=== PATIENT | female | born 1975 | race Caucasian/White ===

== ENCOUNTER 2018-02-07 06:26 | Emergency (ER) | payer OTHER ==
[~2018-02-07] VITALS: Ht 175.3 cm; Wt 63.5 kg
[~2018-02-07 06:26] MED LIST: VICODIN 5-5001 EACH PO
[2018-02-07] MEDS ORDERED: FLAGYL500 MG PO (07:52)
[2018-02-07 08:04] LABS: URINE BILIRUBIN NEGATIVE (Negative); URINE BLOOD TRACE (Negative); URINE CLARITY CLEAR; URINE COLOR YELLOW; URINE GLUCOSE-RANDOM NEGATIVE (Negative); URINE KETONES NEGATIVE (Negative); URINE LEUKOCYTES-REFLEX NEGATIVE (Negative); URINE NITRITE-REFLEX NEGATIVE (Negative); URINE PROTEIN NEGATIVE (Negative); URINE SPECIFIC GRAVITY >= 1.030 (1.005-1.030); URINE UROBILINOGEN 0.2 E.U./dl (0.2-1.0)
[2018-02-07 08:16] VITALS: BP 98/53
== END 2018-02-07 08:16 | disposition home or self-care (01) ==
LOC: M.ERS 06:26
PROVIDERS: Emergency Medicine
DX: Z11.3 Encounter for screening for infections with a predominantly sexual mode of transmission (principal); N76.0 Acute vaginitis; B96.89 Other specified bacterial agents as the cause of diseases classified elsewhere; F17.210 Nicotine dependence, cigarettes, uncomplicated

== ENCOUNTER 2018-09-05 13:41 | Emergency (ER) | payer OTHER ==
[~2018-09-05] VITALS: Ht 175.3 cm; Wt 63.5 kg
[~2018-09-05 13:41] MED LIST changes: +FLAGYL500 MG PO
[2018-09-05] MEDS ORDERED: NOHOMEMEDICATIONS (13:57)
[2018-09-05 14:12] LABS: URINE BILIRUBIN NEGATIVE (Negative); URINE BLOOD 3+ (Negative); URINE COLOR YELLOW; URINE GLUCOSE-RANDOM NEGATIVE (Negative); URINE KETONES NEGATIVE (Negative); URINE LEUKOCYTES TRACE (Negative); URINE NITRITE POSITIVE (Negative); URINE PROTEIN TRACE (Negative); URINE SPECIFIC GRAVITY 1.025 (1.005-1.030); URINE UROBILINOGEN 0.2 E.U./dl (0.2-1.0)
[2018-09-05 14:13] LABS: URINE CLARITY HAZY
[2018-09-05 14:14] LABS: SQUAMOUS >10 Many /LPF (0-3)
[2018-09-05 14:15] LABS: BACTERIA >30 Many /HPF (None Seen); CASTS None Seen /LPF (None Seen); CRYSTALS None Seen /LPF (None Seen); URINE RBC >20 Many /HPF (0-2); URINE WBC 0-5 Rare /HPF (0-5)
[2018-09-05] MEDS ORDERED: CIPRO500 MG PO (14:21)
[2018-09-05] MEDS ORDERED: FLAGYL500 MG PO (14:33)
[2018-09-05 14:38] VITALS: BP 130/84
== END 2018-09-05 14:38 | disposition home or self-care (01) ==
LOC: M.ERS 13:41
PROVIDERS: Nurse Practitioner Family
DX: Z11.3 Encounter for screening for infections with a predominantly sexual mode of transmission (principal); N76.0 Acute vaginitis; B96.89 Other specified bacterial agents as the cause of diseases classified elsewhere; N39.0 Urinary tract infection, site not specified; F17.210 Nicotine dependence, cigarettes, uncomplicated

== ENCOUNTER 2018-11-16 20:44 | Emergency (ER) | payer OTHER ==
[~2018-11-16] VITALS: Ht 175.3 cm; Wt 59.9 kg
[~2018-11-16 20:44] MED LIST changes: +CIPRO500 MG PO; +NOHOMEMEDICATIONS
[2018-11-16 21:42] LABS: URINE BILIRUBIN NEGATIVE (Negative); URINE BLOOD NEGATIVE (Negative); URINE CLARITY CLEAR; URINE COLOR YELLOW; URINE GLUCOSE-RANDOM NEGATIVE (Negative); URINE KETONES NEGATIVE (Negative); URINE LEUKOCYTES-REFLEX NEGATIVE (Negative); URINE NITRITE-REFLEX POSITIVE (Negative); URINE PROTEIN NEGATIVE (Negative); URINE SPECIFIC GRAVITY >= 1.030 (1.005-1.030); URINE UROBILINOGEN 0.2 E.U./dl (0.2-1.0)
[2018-11-16] MEDS ORDERED: BACTRIM DS TAB1 EACH PO (21:45)
[2018-11-16 22:00] LABS: BACTERIA-REFLEX >30 Many /HPF (None Seen); MUCUS 4-6 Moderate strn/LPF (None Seen)
[2018-11-16 22:01] LABS: SQUAMOUS >10 Many /LPF (0-3); URINE WBC-REFLEX 0-5 Rare /HPF (0-5)
[2018-11-16 22:02] LABS: CASTS None Seen /LPF (None Seen); CRYSTALS None Seen /LPF (None Seen); URINE RBC None Seen /HPF (0-2)
[2018-11-16 22:13] VITALS: BP 127/80
== END 2018-11-16 22:15 | disposition home or self-care (01) ==
LOC: M.ERS 20:44
PROVIDERS: Physician Assistant
DX: N39.0 Urinary tract infection, site not specified (principal)

== ENCOUNTER 2018-12-21 21:12 | Emergency (ER) | payer OTHER ==
[~2018-12-21] VITALS: Ht 175.3 cm; Wt 59.0 kg
[~2018-12-21 21:12] MED LIST changes: +BACTRIM DS TAB1 EACH PO
[2018-12-21 21:35] LABS: URINE BILIRUBIN NEGATIVE (Negative); URINE BLOOD NEGATIVE (Negative); URINE CLARITY CLEAR; URINE COLOR YELLOW; URINE GLUCOSE-RANDOM NEGATIVE (Negative); URINE KETONES NEGATIVE (Negative); URINE LEUKOCYTES-REFLEX NEGATIVE (Negative); URINE NITRITE-REFLEX NEGATIVE (Negative); URINE PROTEIN TRACE (Negative); URINE SPECIFIC GRAVITY >= 1.030 (1.005-1.030); URINE UROBILINOGEN 0.2 E.U./dl (0.2-1.0)
[2018-12-21] MEDS ORDERED: DOXYCYCLINE MO100 M1 PO (21:57)
[2018-12-21] MEDS ORDERED: FLAGYL500 M1 PO (22:03)
[2018-12-21 22:29] VITALS: BP 126/79
== END 2018-12-21 22:30 | disposition home or self-care (01) ==
LOC: M.ERS 21:12
PROVIDERS: Nurse Practitioner Family
DX: Z20.2 Contact with and (suspected) exposure to infections with a predominantly sexual mode of transmission (principal); N76.0 Acute vaginitis; F17.210 Nicotine dependence, cigarettes, uncomplicated

== ENCOUNTER 2018-12-23 21:54 | Emergency (ER) | payer OTHER ==
[~2018-12-23] VITALS: Ht 175.3 cm; Wt 61.2 kg
[~2018-12-23 21:54] MED LIST changes: +DOXYCYCLINE MO100 M1 PO; +FLAGYL500 M1 PO
[2018-12-23] MEDS ORDERED: FLAGYL500 M1 PO (22:20)
[2018-12-23 22:31] VITALS: BP 113/73
== END 2018-12-23 22:32 | disposition home or self-care (01) ==
LOC: M.ERS 21:54
DX: Z20.2 Contact with and (suspected) exposure to infections with a predominantly sexual mode of transmission (principal); Z76.0 Encounter for issue of repeat prescription; F17.210 Nicotine dependence, cigarettes, uncomplicated

== ENCOUNTER 2019-04-27 03:37 | Emergency (ER) | payer OTHER ==
[~2019-04-27] VITALS: Ht 175.3 cm; Wt 63.5 kg
[2019-04-27] MEDS ORDERED: FLAGYL500 M1 PO (04:16)
[2019-04-27 04:30] LABS: URINE BILIRUBIN 1+ (Negative); URINE BLOOD NEGATIVE (Negative); URINE CLARITY CLEAR; URINE COLOR DARK YELLOW; URINE GLUCOSE-RANDOM NEGATIVE (Negative); URINE KETONES TRACE (Negative); URINE LEUKOCYTES-REFLEX NEGATIVE (Negative); URINE NITRITE-REFLEX POSITIVE (Negative); URINE PROTEIN 1+ (Negative); URINE SPECIFIC GRAVITY >= 1.030 (1.005-1.030); URINE UROBILINOGEN 0.2 E.U./dl (0.2-1.0)
[2019-04-27 04:33] LABS: ICTOTEST (BILI CONFIRMATORY) Negative (Negative)
[2019-04-27 04:58] LABS: BACTERIA-REFLEX >30 Many /HPF (None Seen); CASTS None Seen /LPF (None Seen); CRYSTALS None Seen /LPF (None Seen); MUCUS 4-6 Moderate strn/LPF (None Seen); SQUAMOUS 0-3 Few /LPF (0-3); TRANSITIONAL EPITHEL CELL 0-3 Few /LPF (None Seen); URINE RBC 3-10 Few /HPF (0-2); URINE WBC-REFLEX 6-15 Few /HPF (0-5)
[2019-04-27 05:07] VITALS: BP 106/58
== END 2019-04-27 05:08 | disposition home or self-care (01) ==
LOC: M.ERS 03:37
PROVIDERS: Personal Emergency Response Attendant
DX: N76.0 Acute vaginitis (principal); B96.89 Other specified bacterial agents as the cause of diseases classified elsewhere; F17.210 Nicotine dependence, cigarettes, uncomplicated

== ENCOUNTER 2020-02-08 11:10 | Emergency (ER) | payer OTHER ==
[~2020-02-08] VITALS: Ht 175.3 cm; Wt 61.2 kg
[2020-02-08 12:00] VITALS: BP 106/57
== END 2020-02-08 12:01 | disposition home or self-care (01) ==
LOC: M.ERS 11:10
DX: Z20.2 Contact with and (suspected) exposure to infections with a predominantly sexual mode of transmission (principal); R21 Rash and other nonspecific skin eruption; F17.210 Nicotine dependence, cigarettes, uncomplicated

== ENCOUNTER 2020-10-23 02:59 | Emergency (ER) | payer OTHER ==
[~2020-10-23] VITALS: Ht 175.3 cm; Wt 61.2 kg
[2020-10-23 03:32] LABS: URINE BILIRUBIN NEGATIVE (Negative); URINE BLOOD NEGATIVE (Negative); URINE CLARITY CLEAR; URINE COLOR YELLOW; URINE GLUCOSE-RANDOM NEGATIVE (Negative); URINE KETONES TRACE (Negative); URINE LEUKOCYTES-REFLEX NEGATIVE (Negative); URINE PROTEIN NEGATIVE (Negative); URINE SPECIFIC GRAVITY >= 1.030 (1.005-1.030); URINE UROBILINOGEN 0.2 E.U./dl (0.2-1.0)
[2020-10-23 03:45] LABS: URINE NITRITE-REFLEX POSITIVE (Negative)
[2020-10-23 04:03] LABS: CASTS None Seen /LPF (None Seen); MUCUS 4-6 Moderate strn/LPF (None Seen); SQUAMOUS >10 Many /LPF (0-3)
[2020-10-23 04:04] LABS: BACTERIA-REFLEX >30 Many /HPF (None Seen); CRYSTALS None Seen /LPF (None Seen); URINE RBC None Seen /HPF (0-2)
[2020-10-23] MEDS ORDERED: FLAGYL500 M1 PO (04:22)
[2020-10-23] MEDS ORDERED: BACTRIM DS TAB1 EACH PO (04:22)
[2020-10-23 04:45] VITALS: BP 111/79
== END 2020-10-23 04:46 | disposition home or self-care (01) ==
LOC: M.ERS 02:59
PROVIDERS: Emergency Medicine
DX: N76.0 Acute vaginitis (principal); N39.0 Urinary tract infection, site not specified; Z20.2 Contact with and (suspected) exposure to infections with a predominantly sexual mode of transmission; F17.210 Nicotine dependence, cigarettes, uncomplicated

== ENCOUNTER 2021-05-16 16:32 | Emergency (ER) | payer OTHER ==
[~2021-05-16] VITALS: Ht 175.3 cm; Wt 61.2 kg
[2021-05-16] MEDS ORDERED: DOXYCYCLINE 10100 MG PO (16:59)
[2021-05-16 17:41] VITALS: BP 121/82
== END 2021-05-16 17:42 | disposition home or self-care (01) ==
LOC: M.ERS 16:32
DX: N89.8 Other specified noninflammatory disorders of vagina (principal); Z20.2 Contact with and (suspected) exposure to infections with a predominantly sexual mode of transmission; F17.210 Nicotine dependence, cigarettes, uncomplicated

== ENCOUNTER 2021-07-19 03:39 | Emergency (ER) | payer OTHER ==
[~2021-07-19] VITALS: Ht 175.3 cm; Wt 59.9 kg
[~2021-07-19 03:39] MED LIST changes: +DOXYCYCLINE 10100 MG PO
[2021-07-19] MEDS ORDERED: HYDROCODON-ACE1 EAC7 PO (04:44)
[2021-07-19 05:14] VITALS: BP 116/68
== END 2021-07-19 05:17 | disposition home or self-care (01) ==
LOC: M.ERS 03:39
DX: S92.311A Displaced fracture of first metatarsal bone, right foot, initial encounter for closed fracture (principal); F17.210 Nicotine dependence, cigarettes, uncomplicated; W10.9XXA Fall (on) (from) unspecified stairs and steps, initial encounter; Y93.89 Activity, other specified; Y92.89 Other specified places as the place of occurrence of the external cause; Y99.8 Other external cause status

== ENCOUNTER 2021-11-18 13:36 | Emergency (ER) | payer OTHER ==
[~2021-11-18] VITALS: Ht 175.3 cm; Wt 63.5 kg
[~2021-11-18 13:36] MED LIST changes: +HYDROCODON-ACE1 EAC7 PO
[2021-11-18 14:21] LABS: URINE BILIRUBIN NEGATIVE (Negative); URINE BLOOD NEGATIVE (Negative); URINE CLARITY CLEAR; URINE COLOR YELLOW; URINE GLUCOSE-RANDOM NEGATIVE (Negative); URINE KETONES NEGATIVE (Negative); URINE LEUKOCYTES-REFLEX NEGATIVE (Negative); URINE NITRITE-REFLEX NEGATIVE (Negative); URINE PROTEIN NEGATIVE (Negative); URINE SPECIFIC GRAVITY 1.025 (1.005-1.030)
[2021-11-18] MEDS ORDERED: METRONIDAZOLE500 M4 PO (15:10)
[2021-11-18] MEDS ORDERED: DOXYCYCLINE 10100 M2 PO (15:10)
[2021-11-18 15:23] VITALS: BP 114/78
== END 2021-11-18 15:23 | disposition home or self-care (01) ==
LOC: M.ERS 13:36
PROVIDERS: Nurse Practitioner Family
DX: Z20.2 Contact with and (suspected) exposure to infections with a predominantly sexual mode of transmission (principal); F17.210 Nicotine dependence, cigarettes, uncomplicated

== ENCOUNTER 2022-01-21 21:54 | Emergency (ER) | payer OTHER ==
[~2022-01-21] VITALS: Ht 175.3 cm; Wt 59.0 kg
[~2022-01-21 21:54] MED LIST changes: +DOXYCYCLINE 10100 M2 PO; +METRONIDAZOLE500 M4 PO
[2022-01-21 22:33] LABS: AMP/METHAMP POSITIVE (Negative); BARBITURATES Negative (Negative); BENZODIAZEPINES Negative (Negative); COCAINE Negative (Negative); METHADONE Negative (Negative); OPIATES Negative (Negative); PCP Negative (Negative); THC POSITIVE (Negative)
[2022-01-21 22:46] LABS: URINE BILIRUBIN NEGATIVE (Negative); URINE BLOOD NEGATIVE (Negative); URINE CLARITY CLEAR; URINE COLOR YELLOW; URINE GLUCOSE-RANDOM NEGATIVE (Negative); URINE KETONES NEGATIVE (Negative); URINE LEUKOCYTES-REFLEX NEGATIVE (Negative); URINE NITRITE-REFLEX NEGATIVE (Negative); URINE PROTEIN NEGATIVE (Negative); URINE UROBILINOGEN 0.2 E.U./dl (0.2-1.0)
[2022-01-21] MEDS ORDERED: DOXYCYCLINE 10100 MG PO (23:31)
[2022-01-21 23:53] VITALS: BP 132/81
[2022-01-23 06:06] LABS: HIV-1/HIV-2 ANTIBODY Non Reactive (Non Reactive)
== END 2022-01-21 23:53 | disposition home or self-care (01) ==
LOC: M.ERS 21:54
PROVIDERS: Emergency Medicine
DX: F15.10 Other stimulant abuse, uncomplicated (principal); Z20.2 Contact with and (suspected) exposure to infections with a predominantly sexual mode of transmission; F17.210 Nicotine dependence, cigarettes, uncomplicated